=== PATIENT | female | born 1990 | race Caucasian/White ===

== ENCOUNTER 2024-12-18 15:04 | Emergency (ER) | payer OTHER ==
[2024-12-18 16:24] VITALS: RESP 18
[2024-12-18] MEDS: SODIUM CHLORIDE 0.9% 1,000 ML IV ONE (16:37)
[2024-12-18 16:48] LABS: Basophils % (A) 0 %; Eosinophils # (A) 0.1 k/uL (0-0.7); Eosinophils % (A) 1 %; Hypochromasia Moderate; Lymphocytes # (A) 1.5 k/uL (1.0-4.8); Lymphocytes % (A) 25 %; MCH 27.2 pg (25.0-35.0); MCHC 32.1 g/dL (31.0-37.0); MCV 84.7 fL (80.0-100.0); Mean Platelet Volume 9.4; Monocytes # (A) 0.3 k/uL (0-1.0); Monocytes % (A) 4 %; Neutrophils # (A) 4.1 k/uL (1.3-7.7); Neutrophils % (A) 68 %; Platelet Count 256 k/uL (150-450); Poikilocytosis Moderate; RBC 1.85 m/uL (3.80-5.40); RDW 15.6 % (11.5-15.5); WBC 6.1 k/uL (3.8-10.6)
[2024-12-18 16:50] LABS: HCT 15.6 % (34.0-46.0)
[2024-12-18 16:57] LABS: INR 0.9 (<1.2); Partial Thromboplastin Time 22.9 sec (22.0-30.0); Prothrombin Time 10.5 sec (10.0-12.5)
--- NOTE | 2024-12-18 16:57 | ED ---
Female Urogenital HPI - General Chief complaint: Vaginal Bleeding Stated complaint: Vaginal bleeding(Preg not sure how far) Time Seen by Provider: 12/18/24 16:16 Source: patient Mode of arrival: ambulatory Limitations: no limitations - History of Present Illness Initial comments: 34-year-old female presenting with chief complaint of vaginal bleeding. Patient had a positive at-home test recently, her LMP is 12/3. She started having heavy vaginal bleeding about a week ago, states that it has since slowed down but has not completely resolved which prompted her to come to the ER. She does admit to weakness. No pelvic pain. A2. No blood thinners. No flank pain. She has had some nausea and vomiting which she associated with tamiko y . No fevers or chills. Last Menstrual Period: 10/23/24 - Related Data Allergies Allergy/AdvReac Type Severity Reaction Status Date / Time No Known Allergies Allergy Verified 12/18/24 15:49 Review of Systems ROS Statement: Those systems with pertinent positive or pertinent negative responses have been documented in the HPI. ROS Other: All systems not noted in ROS Statement are negative. Past Medical History Past Medical History: No Reported History History of Any Multi-Drug Resistant Organisms: None Reported Past Surgical History: No Surgical Hx Reported Past Psychological History: No Psychological Hx Reported Smoking Status: Never smoker Past Alcohol Use History: None Reported Past Drug Use History: Marijuana General Exam Limitations: no limitations General appearance: alert, in no apparent distress Head exam: Present: atraumatic, normocephalic, normal inspection Eye exam: Present: normal appearance, EOMI Neck exam: Present: normal inspection. Absent: meningismus Respiratory exam: Present: normal lung sounds bilaterally. Absent: respiratory distress, wheezes, rales, rhonchi, stridor Cardiovascular Exam: Present: regular rate, normal rhythm, normal heart sounds. Absent: systolic murmur, diastolic murmur, rubs, gallop, clicks GI/Abdominal exam: Present: soft. Absent: distended, tenderness, guarding, rebound, rigid Neurological exam: Present: alert, oriented X3 Psychiatric exam: Present: normal affect, normal mood Skin exam: Present: warm, dry, pallor Course Vital Signs 12/18/24 12/18/24 12/18/24 15:46 16:24 17:55 Temperature 97.6 F 98.1 F Pulse Rate 86 80 69 Pulse Rate [ Right Sitting] Pulse Rate [ Right Standing] Pulse Rate [ Right Supine] Respiratory 20 18 18 Rate Blood Pressure 112/59 120/67 Blood Pressure [Right Arm Sitting] Blood Pressure [Right Arm Standing] Blood Pressure [Right Arm Supine] O2 Sat by Pulse 100 100 97 Oximetry 12/18/24 12/18/24 12/18/24 18:14 18:26 18:35 Temperature 98.1 F 98 F Pulse Rate 81 58 L 60 Pulse Rate [ Right Sitting] Pulse Rate [ Right Standing] Pulse Rate [ Right Supine] Respiratory 18 18 18 Rate Blood Pressure 120/67 128/73 119/66 Blood Pressure [Right Arm Sitting] Blood Pressure [Right Arm Standing] Blood Pressure [Right Arm Supine] O2 Sat by Pulse 98 98 99 Oximetry 12/18/24 12/18/24 12/18/24 18:46 21:50 21:51 Temperature 98 F 99.0 F Pulse Rate 64 92 Pulse Rate [ 72 Right Sitting] Pulse Rate [ 92 Right Standing] Pulse Rate [ 61 Right Supine] Respiratory 18 18 Rate Blood Pressure 125/88 139/71 Blood Pressure 131/73 [Right Arm Sitting] Blood Pressure 139/71 [Right Arm Standing] Blood Pressure 125/85 [Right Arm Supine] O2 Sat by Pulse 99 100 Oximetry 12/18/24 22:17 Temperature Pulse Rate 75 Pulse Rate [ Right Sitting] Pulse Rate [ Right Standing] Pulse Rate [ Right Supine] Respiratory 18 Rate Blood Pressure 124/73 Blood Pressure [Right Arm Sitting] Blood Pressure [Right Arm Standing] Blood Pressure [Right Arm Supine] O2 Sat by Pulse 98 Oximetry Medical Decision Making - Medical Decision Making Was pt. sent in by a medical professional or institution (, PA, QUILL CLEANING MACHINE OPERATOR, urgent care, hospital, or retirement...) When possible be specific @ -No Did you speak to anyone other than the patient for history (EMS, parent, family, police, friend...)? What history was obtained from this source @ -No Did you review nursing and triage notes (agree or disagree)? Why? @ -I reviewed and agree with nursing and triage notes Were old charts reviewed (outside hosp., previous admission, EMS record, old EKG, old radiological studies, urgent care reports/EKG's, retirement records)? Report findings @ -No old charts were reviewed Differential Diagnosis (chest pain, altered mental status, abdominal pain women, abdominal pain men, vaginal bleeding, weakness, fever, dyspnea, syncope, headache, dizziness, GI bleed, back pain, seizure, CVA, palpatations, mental health, musculoskeletal)? @ -MDM Differential Vaginal Bleeding: Spontaneous , threatened , molar , ectopic , bloody show, incompetent cervix, abruptioplacenta, placenta previa, uterine rupture, dysfunctional uterine bleeding, hemorrhage, uterine fibroids. ... This is not meant to be an all-inclusive list EKG interpreted by me (3pts min.). @ -As above X-rays interpreted by me (1pt min.). @ -None done CT interpreted by me (1pt min.). @ -None done U/S interpreted by me (1pt. min.). @ -Ultrasound shows no gestational sac identified at this time, correlate for spontaneous . Endometrial canal is somewhat complex. Follow-up r ecommended for possible retained products. What testing was considered but not performed or refused? (CT, X-rays, U/S, labs)? Why? @ -None What meds were considered but not given or refused? Why? @ -None Did you discuss the management of the patient with other professionals (professionals i.e. , PA, QUILL CLEANING MACHINE OPERATOR, lab, RT, psych nurse, social media community manager, pole peeling machine operator helper, teacher, medical officer, employment case manager)? Give summary @ -I spoke with DRAFTING ENGINEER on-call Dr. Brice. She states that she has seen this patient in the past. She agrees with the plan of giving 1 unit of blood and administering RhoGAM. She states that since the patient is hemodynamically stable and bleeding is continuing to improve once the blood is transfused she can follow-up in the office with her on Tuesday for reassessment and repeat labs Was smoking cessation discussed for >3mins.? @ -No Was critical care preformed (if so, how long)? @ -No Were there social determinants of health that impacted care today? How? (Homelessness, low income, unemployed, alcoholism, drug addiction, transportation, low edu. Level, literacy, decrease access to med. care, senior living, rehab)? @ -No Was there de-escalation of care discussed even if they declined (Discuss DNR or withdrawal of care, Hospice)? DNR status @ -No What co-morbidities impacted this encounter? (DM, HTN, Smoking, COPD, CAD, Cancer, CVA, ARF, Chemo, Hep., AIDS, mental health diagnosis, sleep apnea, morbid obesity)? @ -None Was patient admitted / discharged? Hospital course, mention meds given and route, prescriptions, significant lab abnormalities, going to OR and other pertinent info. @ -34-year-old female presenting with chief complaint of vaginal bleeding. Started last Tuesday. It has been gradually improving but has not completely resolved. History and physical examination are conducted. Abdomen is soft, nontender, nondistended. On pelvic exam there is a very small amount of blood in the vaginal canal, this is cleared using 1 hopper swab. No recurrence of bleeding during exam. Hemoglobin is 5, patient states she does have history of anemia. No previous values available for comparison unfortunately and patient does not know where her hemoglobin normally lies. Patient is ordered 1 unit of blood. She is blood type A-, RhoGAM is administered. Urine shows signs of contamination from the patient's vaginal bleeding. hCG is 161.6. Ultrasound shows no gestational sac, likely spontaneous . I discussed these results with DRAFTING ENGINEER on-call Dr. Brice. Given that the patient is hemodynamically stable and has very little bleeding at this time, she states that the patient can be discharged after receiving her unit of blood and RhoGAM and follow-up in the office with her on Tuesday. She is familiar with this patient and has seen her with previous pregnancies. Patient has negative orthostatic vitals. She is hemodynamically stable. On reassessment she is resting comfortably showing no acute signs of distress. Patient is educated on today's findings and treatment plan. She is instructed to call Dr. Brice's office tomorrow to schedule a follow-up appointment with her on Tuesday. Follow- up with PCP. Report back to ER with any new or worsening symptoms. Discussed return parameters and answered all questions. Patient conveyed verbal under standing and agreed to the plan. I discussed this case in detail with my attending Dr. Gottlieb Undiagnosed new problem with uncertain prognosis? @ -No Drug Therapy requiring intensive monitoring for toxicity (Heparin, Nitro, Insulin, Cardizem)? @ -No Were any procedures done? @ -No Diagnosis/symptom? @ -Spontaneous , anemia Acute, or Chronic, or Acute on Chronic? @ -Acute Uncomplicated (without systemic symptoms) or Complicated (systemic symptoms)? @ -Uncomplicated Side effects of treatment? @ -No Exacerbation, Progression, or Severe Exacerbation? @ -No - Lab Data Result diagrams: 12/18/24 16:32 12/18/24 16:32 Lab Results 12/18/24 12/18/24 12/18/24 Range/Units 16:22 16:32 16:32 WBC 6.1 (3.8-10.6) k/uL RBC 1.85 L (3.80-5.40) m/uL Hgb 5.0 L* (11.4-16.0) gm/dL Hct 15.6 L* (34.0-46.0) % MCV 84.7 (80.0-100.0) fL MCH 27.2 (25.0-35.0) pg MCHC 32.1 (31.0-37.0) g/dL RDW 15.6 H (11.5-15.5) % Plt Count 256 (150-450) k/uL MPV 9.4 Neutrophils % 68 % Lymphocytes % 25 % Monocytes % 4 % Eosinophils % 1 % Basophils % 0 % Neutrophils # 4.1 (1.3-7.7) k/uL Lymphocytes # 1.5 (1.0-4.8) k/uL Monocytes # 0.3 (0-1.0) k/uL Eosinophils # 0.1 (0-0.7) k/uL Basophils # 0.0 (0-0.2) k/uL Hypochromasia Moderate Poikilocytosis Moderate PT 10.5 (10.0-12.5) sec INR 0.9 (<1.2) APTT 22.9 (22.0-30.0) sec Sodium (137-145) mmol/L Potassium (3.5-5.1) mmol/L Chloride (98-107) mmol/L Carbon Dioxide (22-30) mmol/L Anion Gap mmol/L BUN (7-17) mg/dL Creatinine (0.52-1.04) mg/dL Est GFR (CKD-EPI)AfAm (>60 ml/min/1.73 sqM) Est GFR (CKD-EPI)NonAf (>60 ml/min/1.73 sqM) Glucose (74-99) mg/dL Calcium (8.4-10.2) mg/dL Total Bilirubin (0.2-1.3) mg/dL AST (14-36) U/L ALT (4-34) U/L Alkaline Phosphatase (38-126) U/L Total Protein (6.3-8.2) g/dL Albumin (3.5-5.0) g/dL HCG, Quant mIU/mL Urine Color Urine Appearance (Clear) Urine pH (5.0-8.0) Ur Specific Rogers (1.001-1.035) Urine Protein (Negative) Urine Glucose (UA) (Negative) Urine Ketones (Negative) Urine Blood (Negative) Urine Nitrite (Negative) Urine Bilirubin (Negative) Urine Urobilinogen (<2.0) mg/dL Ur Leukocyte Esterase (Negative) Urine RBC (0-5) /hpf Urine WBC (0-5) /hpf Ur Squamous Epith Cells (0-4) /hpf Hyaline Casts (0-2) /lpf Urine Mucus (None) /hpf Blood Type A Negative Blood Type Confirm Blood Type Recheck No Previous Record Bld Type Recheck Status CABO Indicated Antibody Screen NEGATIVE Crossmatch See Detail Spec Expiration Date 12/21/2024 - 232112/18/24 12/18/24 12/18/24 Range/Units 16:32 16:32 16:32 WBC (3.8-10.6) k/uL RBC (3.80-5.40) m/uL Hgb (11.4-16.0) gm/dL Hct (34.0-46.0) % MCV (80.0-100.0) fL MCH (25.0-35.0) pg MCHC (31.0-37.0) g/dL RDW (11.5-15.5) % Plt Count (150-450) k/uL MPV Neutrophils % % Lymphocytes % % Monocytes % % Eosinophils % % Basophils % % Neutrophils # (1.3-7.7) k/uL Lymphocytes # (1.0-4.8) k/uL Monocytes # (0-1.0) k/uL Eosinophils # (0-0.7) k/uL Basophils # (0-0.2) k/uL Hypochromasia Poikilocytosis PT (10.0-12.5) sec INR (<1.2) APTT (22.0-30.0) sec Sodium 137 (137-145) mmol/L Potassium 4.0 (3.5-5.1) mmol/L Chloride 104 (98-107) mmol/L Carbon Dioxide 23 (22-30) mmol/L Anion Gap 10 mmol/L BUN 10 (7-17) mg/dL Creatinine 0.51 L (0.52-1.04) mg/dL Est GFR (CKD-EPI)AfAm >90 (>60 ml/min/1.73 sqM) Est GFR (CKD-EPI)NonAf >90 (>60 ml/min/1.73 sqM) Glucose 99 (74-99) mg/dL Calcium 8.6 (8.4-10.2) mg/dL Total Bilirubin 0.4 (0.2-1.3) mg/dL AST 21 (14-36) U/L ALT 11 (4-34) U/L Alkaline Phosphatase 68 (38-126) U/L Total Protein 6.1 L (6.3-8.2) g/dL Albumin 3.5 (3.5-5.0) g/dL HCG, Quant 161.6 mIU/mL Urine Color Colorless Urine Appearance Clear (Clear) Urine pH 7.0 (5.0-8.0) Ur Specific Rogers 1.005 (1.001-1.035) Urine Protein Negative (Negative) Urine Glucose (UA) Negative (Negative) Urine Ketones Negative (Negative) Urine Blood Moderate H (Negative) Urine Nitrite Negative (Negative) Urine Bilirubin Negative (Negative) Urine Urobilinogen <2.0 (<2.0) mg/dL Ur Leukocyte Esterase Large H (Negative) Urine RBC 7 H (0-5) /hpf Urine WBC 11 H (0-5) /hpf Ur Squamous Epith Cells 2 (0-4) /hpf Hyaline Casts 1 (0-2) /lpf Urine Mucus Rare H (None) /hpf Blood Type Blood Type Confirm A Negative Blood Type Recheck Bld Type Recheck Status Antibody Screen Crossmatch Spec Expiration Date Disposition Clinical Impression: Spontaneous , Anemia Disposition: HOME SELF-CARE Condition: Fair Instructions (If sedation given, give patient instructions): Miscarriage (ED), Anemia (ED) Additional Instructions: Follow-up with your DRAFTING ENGINEER on Tuesday, call the office tomorrow to set up your appointment. Report back to ER with any new or worsening symptoms, including but not limited to dizziness, weakness, loss of consciousness, increased bleeding. Is patient prescribed a controlled substance at d/c from ED?: No Referrals: Nonstaff,Physician [Primary Care Provider] - 1-2 days Claudia Brice DO [Doctor of Osteopathic Medicine] - 12/24/24 Time of Disposition: 22:00
[2024-12-18 17:03] LABS: ALT 11 U/L (4-34); AST 21 U/L (14-36); African American GFR (CKD) >90 (>60 ml/min/1.73 sqM); Albumin 3.5 g/dL (3.5-5.0); Alkaline Phosphatase 68 U/L (38-126); Anion Gap 10 mmol/L; Blood Urea Nitrogen 10 mg/dL (7-17); Calcium 8.6 mg/dL (8.4-10.2); Carbon Dioxide 23 mmol/L (22-30); Chloride 104 mmol/L (98-107); Glucose 99 mg/dL (74-99); Non-African American GFR(CKD) >90 (>60 ml/min/1.73 sqM); Sodium 137 mmol/L (137-145); Total Bilirubin 0.4 mg/dL (0.2-1.3); Total Protein 6.1 g/dL (6.3-8.2)
[2024-12-18 17:17] LABS: HCG,Quantitative Serum 161.6 mIU/mL
--- NOTE | 2024-12-18 17:51 | US ---
EXAMINATION TYPE: Transabdominal DATE OF EXAM: 12/18/2024 5:10 PM COMPARISON: NONE CLINICAL INDICATION: Female, 34 years old with history of Bleeding; Pt found out she was preg. last w [place], not 100% positive on exact date of last period- "Sometime early October" TECHNIQUE: Transvaginal (TV) and Transabdominal (TA) with grayscale and color Doppler imaging includi ng first trimester . FINDINGS: EXAM MEASUREMENTS: GESTATIONAL AGE / DATING Physician Established: Not yet established Dates by LMP: LMP unknown MATERNAL ANATOMY Uterus: 8.9x5.1x8.2cm Endometrium: Complex CX: multiple anechoic areas seen, ?Nabothian cysts Right Ovary: 2.1x2.2x2.0cm Hypoechoic area seen: 0.9x0.8x0.7cm Left Ovary: 2.9x2.7x1.2cm Presence of free fluid: no Presence of corpus luteal cyst: no Presence of subchorionic bleed: no GESTATION / SURVEY CRL: Not seen on today's study Gestational Sac morphology: Not seen on today's study Gestational Sac MSD: not seen on today's study Yolk Sac (normal less than 6mm): not seen on today's study Cardiac Activity/Heart Rate: Not seen on today's study bpm IUP: No IUP seen at this time Date of LMP: ? 10/25/2024) Pt unsure Beta HcG (if available): Not available at this time IMPRESSION: 1. Correlate for spontaneous . No gestational sac identified at this time. 2. Endometrial canal is somewhat complex. Followup recommended for possible retained products [facility], Workstation: [facility], 12/18/2024 5:48 PM
[2024-12-18 18:21] LABS: Appearance,Urine Clear (Clear); Bilirubin,Urine Negative (Negative); Blood,Urine Moderate (Negative); Color,Urine Colorless; Glucose,Urine (UA) Negative (Negative); Hyaline Casts,Urine 1 /lpf (0-2); Ketones,Urine Negative (Negative); Leukocyte Esterase,Urine Large (Negative); Mucus,Urine Rare /hpf; Nitrite,Urine Negative (Negative); Protein,Urine Negative (Negative); RBC,Urine 7 /hpf (0-5); Specific Gravity,Urine 1.005 (1.001-1.035); Squamous Epithelial Cell,Urine 2 /hpf (0-4); Urobilinogen,Urine <2.0 mg/dL (<2.0); WBC,Urine 11 /hpf (0-5)
[2024-12-18] MEDS: Rhogam IMMUNE GLOBULIN 1,500 UNIT/1 ML IM ONE (18:41)
[2024-12-18 21:51] VITALS: TEMP 99
[2024-12-18 22:22] VITALS: BP 124/73; PULSE 75
== END 2024-12-18 22:23 | disposition home or self-care (01) ==
LOC: EC 15:04
DX: O03.9 Complete or unspecified spontaneous abortion without complication (principal); O99.019 Anemia complicating pregnancy, unspecified trimester; D64.9 Anemia, unspecified
CPT/HCPCS: 36415; 86900; 86901; 80053; 85025; 85610; 85730; 86850; 86920; 81001; 84702; 87086; 76801; 99284; 96372; 96360; 96361; 36430; P9016; J2790